=== PATIENT | female | born 1995 | race Caucasian/White ===

== ENCOUNTER 2020-04-10 20:52 | Emergency (ER) | payer OTHER ==
[~2020-04-10] VITALS: Ht 172.7 cm; Wt 81.8 kg
[2020-04-10 20:59] VITALS: TEMP 98.1
[2020-04-10] MEDS ORDERED: NOVLOG SQ (21:08)
[2020-04-10 22:50] VITALS: BP 104/68; PULSE 75
== END 2020-04-10 22:50 | disposition home or self-care (01) ==
LOC: COL.ER 20:52
DX: S62.141A Displaced fracture of body of hamate [unciform] bone, right wrist, initial encounter for closed fracture (principal); E11.9 Type 2 diabetes mellitus without complications; Z79.4 Long term (current) use of insulin; W22.8XXA Striking against or struck by other objects, initial encounter
CPT/HCPCS: Q4021

== ENCOUNTER 2021-02-23 05:30 | Day surgery (SDC) | payer OTHER ==
[~2021-02-23] VITALS: Ht 172.7 cm; Wt 88.5 kg
[~2021-02-23 05:30] MED LIST: NOVLOG SQ
[2021-02-23 05:51] VITALS: BP 117/76; PULSE 77; TEMP 98.3
[2021-02-23] MEDS ORDERED: PROZAC60 MG PO (06:22)
[2021-02-23] MEDS ORDERED: SINGULAIR 110 MG/TAB PO (06:23)
[2021-02-23] MEDS ORDERED: [UNRECOGNIZED DRUG - SUPPLY] MC (06:35)
[2021-02-23 08:23] VITALS: BP 108/56; PULSE 63; TEMP 97.4
[2021-02-23] MEDS ORDERED: IBU800 M1 PO (08:24)
[2021-02-23] MEDS ORDERED: TYLENOL W/COD1 UDTAB PO (08:25)
[2021-02-23 08:40] VITALS: BP 101/60; PULSE 66
[2021-02-23 09:00] VITALS: BP 106/60; PULSE 64
[2021-02-23 09:15] VITALS: BP 103/51; PULSE 70
--- NOTE | 2021-02-23 10:11 | NUR ---
PT RETURNED FROM OR INTO BAY #7 PER CART. PT SLEEPING, AROUSES TO NAME AND TOUCH AND IS ORIENTED TO PLACE. LUNGS CLEAR, HRR, BOWEL SOUNDS PRESENT AND HYPOACTIVE. PT RATES PAIN AT A 5-6 ON A 0-10 SCALE. ICE PACK WAS APPLIED. VSS, AFEBRILE. PT STATES WANTING BLUEBERRY MUFFIN AND WATER. DENIES NAUSEA AT THIS TIME. IVF RUNNING PATENT INTO RIGHT HAND. INSULIN PUMP WAS REMOVED DURING THE PROCEDURE PER LEONA HURTADO R/T BS 49, D50 THEN GIVEN IV AND BS UP TO 137. BS NOW 198. PT HAS RE-ATTACHED INSULIN PUMP. PT HAS CALL LIGHT IN REACH. WILL CONT TO MONITOR.
--- NOTE | 2021-02-23 10:21 | NUR ---
PT TOLERATING FOOD AND FLUIDS WITHOUT NAUSEA OR VOMITING. GLUE TO SURIGAL SITE REMAINS INTACT WITHOUT DRAINAGE. FATHER AT BEDSIDE WITH PATIENT. WILL CONT TO MONITOR. CALL LIGHT IN REACH.
--- NOTE | 2021-02-23 10:24 | NUR ---
PT TOLERATING FOOD AND FLUIDS. PT STATES PAIN CONTINUES AT A 5 ON 0-[address] OFFERED. PT RATES PAIN AT A 4 ON 0-10 SCALE AFTER ADMINISTRATION. PT VSS. IV TO RIGHT HAND WAS DC'D. DIMISSAL PAPERS WERE EXPLAINED AND SIGNED. PT WAS TAKEN TO PATIENT ENTRANCE FOR DISCHARGE PER WC. FATHER DRIVING FAMILY VEHICLE.
== END 2021-02-23 09:45 | disposition home or self-care (01) ==
LOC: SDCO 05:30
DX: Z30.46 Encounter for surveillance of implantable subdermal contraceptive (principal); E10.9 Type 1 diabetes mellitus without complications; J30.9 Allergic rhinitis, unspecified; F32.9 Major depressive disorder, single episode, unspecified; Z79.4 Long term (current) use of insulin; Z79.899 Other long term (current) drug therapy; Z80.3 Family history of malignant neoplasm of breast; Z80.1 Family history of malignant neoplasm of trachea, bronchus and lung; Z80.8 Family history of malignant neoplasm of other organs or systems
CPT/HCPCS: J2704; J7120

== ENCOUNTER → 2021-03-09 | Outpatient (CLI) | payer OTHER ==
[~2021-03-09] MED LIST changes: +DIFLUCAN150 MG PO; +IBU800 M1 PO; +MACROBID 1100 MG/CAP PO; +PROZAC60 MG PO; +SINGULAIR 110 MG/TAB PO; +TYLENOL W/COD1 UDTAB PO; +[UNRECOGNIZED DRUG - SUPPLY] MC
== END ==
LOC: COL.RAD 07:58
DX: M51.27 Other intervertebral disc displacement, lumbosacral region (principal); Q62.8 Other congenital malformations of ureter

== ENCOUNTER 2021-04-22 19:23 | Emergency (ER) | payer OTHER ==
[~2021-04-22] VITALS: Ht 172.7 cm; Wt 90.9 kg
[~2021-04-22 19:23] MED LIST changes: -DIFLUCAN150 MG PO; -MACROBID 1100 MG/CAP PO
[2021-04-22 19:25] VITALS: TEMP 98.2
[2021-04-22 19:38] LABS: COLLECTION METHOD CLEAN CATCH
[2021-04-22 19:47] LABS: MUCOUS Present /lpf; PH 5 (5-8); URINE APPEARANCE Hazy; URINE BACTERIA None Seen /hpf; URINE BILIRUBIN Negative (NEGATIVE); URINE BLOOD 3+ (NEGATIVE); URINE COLOR Yellow; URINE GLUCOSE 3+ (NEGATIVE); URINE KETONE Trace (NEGATIVE); URINE LEUKOCYTE ESTERASE 1+ (NEGATIVE); URINE NITRATE Negative (NEGATIVE); URINE PROTEIN(semi-quant) 2+ (NEGATIVE); URINE RBC >50 /hpf; URINE UROBILINOGEN Negative (NEGATIVE)
[2021-04-22] MEDS ORDERED: MACROBID 1100 MG/CAP PO (20:00)
[2021-04-22 20:05] VITALS: BP 132/79; PULSE 83
[2021-04-22] MEDS ORDERED: DIFLUCAN150 MG PO (20:10)
== END 2021-04-22 20:10 | disposition home or self-care (01) ==
LOC: COL.ER 19:23
PROVIDERS: Emergency Medicine
DX: N39.0 Urinary tract infection, site not specified (principal); E11.9 Type 2 diabetes mellitus without complications; Z79.4 Long term (current) use of insulin

== ENCOUNTER → 2021-06-14 | Outpatient (CLI) | payer OTHER ==
[~2021-06-14] MED LIST changes: +DIFLUCAN150 MG PO; +MACROBID 1100 MG/CAP PO
== END ==
LOC: MHCPAIN 13:04
DX: M47.817 Spondylosis without myelopathy or radiculopathy, lumbosacral region (principal); M53.3 Sacrococcygeal disorders, not elsewhere classified; M54.16 Radiculopathy, lumbar region
CPT/HCPCS: G0463

== ENCOUNTER → 2021-06-26 | Outpatient (CLI) | payer OTHER | LOC: MHCPAIN 13:26 | DX: M47.817 Spondylosis without myelopathy or radiculopathy, lumbosacral region (principal); M54.17 Radiculopathy, lumbosacral region; M53.3 Sacrococcygeal disorders, not elsewhere classified | CPT/HCPCS: J1100; Q9967 ==

== ENCOUNTER → 2021-07-11 | Outpatient (CLI) | payer OTHER | LOC: MHCPAIN 14:59 | DX: M47.817 Spondylosis without myelopathy or radiculopathy, lumbosacral region (principal); M53.3 Sacrococcygeal disorders, not elsewhere classified; M54.16 Radiculopathy, lumbar region | CPT/HCPCS: G0463 ==

== ENCOUNTER → 2021-07-27 | Outpatient (CLI) | payer OTHER | LOC: MHCPAIN 09:00 | DX: M47.817 Spondylosis without myelopathy or radiculopathy, lumbosacral region (principal); M53.3 Sacrococcygeal disorders, not elsewhere classified; M54.17 Radiculopathy, lumbosacral region | CPT/HCPCS: J1100; Q9967 ==

== ENCOUNTER → 2021-08-07 | Outpatient (CLI) | payer OTHER | LOC: MHCPAIN 12:28 | DX: M47.896 Other spondylosis, lumbar region (principal); M53.3 Sacrococcygeal disorders, not elsewhere classified; M54.16 Radiculopathy, lumbar region | CPT/HCPCS: G0463 ==